=== PATIENT | female | born 1935 | race Caucasian/White ===

== ENCOUNTER 2019-05-25 17:24 | Emergency (ER) | payer OTHER ==
[~2019-05-25] VITALS: Ht 152.4 cm; Wt 97.8 kg
[~2019-05-25 17:24] MED LIST: SUCR1TAB56 PO
[2019-05-25 17:33] VITALS: Ht 152.4 cm; Wt 97.8 kg
[2019-05-25] MEDS ORDERED: LIDOCAINE/MYLANTA 40 ML BTL PO STA (18:46)
[2019-05-25] MEDS ORDERED: FAMOTIDINE 20 MG TAB PO STA (18:46)
[2019-05-25] MEDS ORDERED: SOD CHLORIDE 0.9% 500 ML IV STA (18:46)
[2019-05-25] MEDS ORDERED: ONDANSETRON 4 MG INJ IV STA (18:46)
--- NOTE | 2019-05-25 18:52 | ERD ---
ER Documentation Chief Complaint Chief Complaint epigastric pain HPI 84-year-old female with history of diabetes and hypertension gastritis presenting with epigastric pain for the past several days. With some mild shortness of breath while supine but alleviated while standing or walking. No chest pain, no nausea or vomiting. No melena or bright red blood per rectum. Patient did have a fall this morning in the bathroom secondary to her legs feeling weak did not hit her head and no loss of consciousness. Has been ambulatory since then. Not on any blood thinners. No infectious symptoms. ROS All systems reviewed and are negative except as per history of present illness. Allergies Allergies: Coded Allergies: No Known Allergy (Unverified , 05/25/19) PMhx/Soc History of Surgery: Yes (spine) Anesthesia Reaction: No Hx Neurological Disorder: No Hx Cardiac Disorders: Yes (htn) Hx Alcohol Use: No Hx Substance Use: No Hx Tobacco Use: No Smoking Status: Never smoker Physical Exam Vitals Vital Signs Date Temp Pulse Resp B/P (MAP) Pulse Ox O2 O2 Flow FiO2 Time Delivery Rate 05/25/19 97.7 100 18 108/59 99 17:33 (75) Physical Exam Const: No acute distress Head: Atraumatic Eyes: Normal Conjunctiva ENT: Normal External Ears, Nose and Mouth. Neck: Full range of motion. No meningismus. Resp: Clear to auscultation bilaterally Cardio: Regular rate and rhythm, no murmurs Abd: Soft, mild epigastric tender, non distended. Normal bowel sounds Skin: No petechiae or rashes Back: No midline or flank tenderness Lower Extremity - bilateral[]: Skin: No laceration, or evidence of external trauma Compartments: Soft Motor: Full active range of motion hip/knee/ankle/foot Sensation: Intact to light touch FDWS/dorsal lateral toes/MF/LF/Plantar calcaneal surface Bones: Nontender pelvis/knee/proximal tibia/ malleoli/foot Joints: No effusion or laxity Pulses/Perfusion: 2+ DP, Capillary refill < 2 seconds Nailbeds: Intact without significant subungal hematoma Neur: Awake and alert Psych: Normal Mood and Affect Result Diagram: 05/25/19191405/25/191914 Results 24 hrs Laboratory Tests Test 05/25/19 19:15 White Blood Count 12.9 10^3/ul Red Blood Count 4.17 10^6/ul Hemoglobin 13.0 g/dl Hematocrit 38.3 % Mean Corpuscular Volume 91.8 fl Mean Corpuscular Hemoglobin 31.2 pg Mean Corpuscular Hemoglobin Concent 33.9 g/dl Red Cell Distribution Width 13.2 % Platelet Count 247 10^3/UL Mean Platelet Volume 10.5 fl Immature Granulocytes % 1.300 % Neutrophils % 64.5 % Lymphocytes % 27.1 % Monocytes % 6.2 % Eosinophils % 0.5 % Basophils % 0.4 % Nucleated Red Blood Cells % 0.0 /100WBC Immature Granulocytes # 0.170 10^3/ul Neutrophils # 8.3 10^3/ul Lymphocytes # 3.5 10^3/ul Monocytes # 0.8 10^3/ul Eosinophils # 0.1 10^3/ul Basophils # 0.1 10^3/ul Nucleated Red Blood Cells # 0.0 10^3/ul Urine Color RACHEL Urine Clarity CLOUDY Urine pH 5.0 Urine Specific [place] 1.033 Urine Ketones TRACE mg/dL Urine Nitrite NEGATIVE mg/dL Urine Bilirubin 1+ mg/dL Urine Urobilinogen 1+ mg/dL Urine Leukocyte Esterase 1+ Trish/ul Urine Microscopic RBC 9 /HPF Urine Microscopic WBC 13 /HPF Urine Squamous Epithelial Cells FEW /HPF Urine Calcium Oxalate Crystals FEW /HPF Urine Bacteria FEW /HPF Urine Mucus MODERATE /HPF Urine Hemoglobin NEGATIVE mg/dL Urine Glucose NEGATIVE mg/dL Urine Total Protein NEGATIVE mg/dl Sodium Level 135 mmol/L Potassium Level 4.0 mmol/L Chloride Level 102 mmol/L Carbon Dioxide Level 25 mmol/L Anion Gap 8 Blood Urea Nitrogen 33 mg/dl Creatinine 0.69 mg/dl Est Glomerular Filtrat Rate mL/min mL/min Glucose Level 182 mg/dl Calcium Level 9.3 mg/dl Total Bilirubin 0.3 mg/dl Direct Bilirubin 0.00 mg/dl Indirect Bilirubin 0.3 mg/dl Aspartate Amino Transf (AST/SGOT) 18 IU/L Alanine Aminotransferase (ALT/SGPT) 20 IU/L Alkaline Phosphatase 41 IU/L Troponin I < 0.012 ng/ml Total Protein 5.8 g/dl Albumin 3.4 g/dl Globulin 2.40 g/dl Albumin/Globulin Ratio 1.41 Lipase 50 U/L Current Medications Medications Dose Sig/Cherry Start Time Status Last (Trade) Ordered Route PRN Stop Time Admin Dose Reason Admin Sodium 500 ml @ Q1H STAT 05/25/19 DC 05/25/19 Chloride 500 mls/hr IV 18:46 05/25/19 19:07 19:45 Ondansetron 4 mg ONCE STAT 05/25/19 DC 05/25/19 HCl (Zofran IV 18:46 05/25/19 19:07 Inj) 18:48 Famotidine 20 mg ONCE STAT 05/25/19 DC 05/25/19 (Pepcid) PO 18:46 05/25/19 19:07 18:48 40 ml ONCE STAT 05/25/19 DC 05/25/19 Miscellaneous PO 18:46 05/25/19 19:07 Medication 18:48 (Gi Cocktail (2)) Sodium 100 ml @ ud STK-MED 05/25/19 DC Chloride ONCE .ROUTE 20:02 05/25/19 20:03 Iohexol 150 ml STK-MED 05/25/19 DC (Omnipaque ONCE .ROUTE 20:02 05/25/19 300mg/ ml) 20:03 Procedures/MDM Patient presents with epigastric abdominal pain most likely secondary to dyspepsia or non-acute abdominal etiology. No peritoneal signs on abdominal exam. Patients symptoms near resolved with GI cocktail. Labs including troponin negative CT abdomen pelvis negative ECG Time: 1820 Ventricular Rate: 76 Rhythm: normal sinus rhythm. ST Segments: without evidence of depressions or elevations Intervals: without evidence of AV block, new BBB, long QT, Brugada No evidence of delta wave. Patient remains PO tolerant. Serial abdominal exam without increase in abdominal pain. Given exam and history, low suspicion for acute abdominal process, such a s acute cholecystitis, pancreatitis, perforated viscus, atypical appendicitis or torsion. Extensive conversation about return precautions and need for follow- up. Departure Diagnosis: Primary Impression: Epigastric pain RYAN MEHTA MD May 25, 2019 18:52
[2019-05-25] MEDS ORDERED: SOD CHLORIDE 0.9% 100 ML ONE (20:02)
[2019-05-25] MEDS ORDERED: IOHEXOL 300MG/ML 150 ML BTL ONE (20:02)
[2019-05-25 22:50] VITALS: BP 128/76; PULSE 79; RESP 16
== END 2019-05-25 22:52 | disposition home or self-care (01) ==
LOC: E/R 17:24 → EDSEX 17:24 → E/R 22:52
DX: R10.13 Epigastric pain (principal); E11.9 Type 2 diabetes mellitus without complications; I10 Essential (primary) hypertension
CPT/HCPCS: 36415; 74177; 80053; 81001; 83690; 84484; 85025; 93005; 96374; J2405; J7040; Q9967; Z7502; Z7610